=== PATIENT | male | born 1990 | race Two or more races ===

== ENCOUNTER 2018-04-07 03:33 | Emergency (ER) | payer SELFPAY ==
[2018-04-07 03:45] VITALS: BP 133/80; PULSE 91; RESP 16; TEMP 98; O2SAT 98
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
[2018-04-07] MEDS ORDERED: Sodium Chloride 0.9% 1,000 ML IV STA (04:34)
[2018-04-07] MEDS ORDERED: Morphine 4 MG/ML VIAL IVP ONE (04:34)
[2018-04-07] MEDS ORDERED: Morphine 4 MG/ML VIAL ONE (05:25)
[2018-04-07 06:03] LABS: BASO % 0.4 % (0.0-2.0); EOS # 0.2 K/uL (0.0-0.7); EOS % 3.5 % (0.0-4.0); HEMOGLOBIN 14.9 g/dL (12.0-18.0); LYMPH # 1.7 K/uL (1.0-4.3); LYMPH % 29.4 % (20.0-40.0); MEAN CELL VOLUME 88.1 fl (80.0-94.0); MEAN CORPUSCULAR HEMOGLOBIN 28.8 pg (27.0-31.0); MEAN CORPUSCULAR HGB CONC 32.7 g/dL (33.0-37.0); MEAN PLATELET VOLUME 8.4 fl (7.2-11.7); MONO # 0.5 K/uL (0.0-0.8); NEUT # 3.5 K/uL (1.8-7.0); NEUT % 58.7 % (50.0-75.0); NRBC % 0.1 % (0.0-0.0); RBC 5.18 Mil/uL (4.40-5.90); RED CELL DISTRIBUTION WIDTH 13.8 % (11.5-14.5); WHITE BLOOD COUNT 5.9 K/uL (4.8-10.8)
[2018-04-07 06:08] LABS: ALB/GLOB RATIO 1.4 (1.0-2.1); ALBUMIN 4.6 g/dL (3.5-5.0); ALT/SGPT 25 U/L (21-72); AST/SGOT 34 U/L (17-59); BLOOD UREA NITROGEN 16 mg/dl (9-20); CALCIUM 9.1 mg/dL (8.4-10.2); GFR NON-AFRICAN AMERICAN > 60
--- NOTE | 2018-04-07 10:40 | CT ---
Date of service: 04/07/2018 PROCEDURE: CT Lumbar Spine without contrast HISTORY: back injury COMPARISON: None available. TECHNIQUE: Axial computed tomography images were obtained of the lumbar spine without the use of intravenous contrast. Coronal and sagittal reformatted images were created and reviewed. Radiation dose: Total exam DLP = 295.32 mGy-cm. This CT exam was performed using one or more of the following dose reduction techniques: Automated exposure control, adjustment of the mA and/or kV according to patient size, and/or use of iterative reconstruction technique. FINDINGS: VERTEBRAE: No destructive bony lesion appreciable. No fracture. Normal alignment. DISCS/SPINAL CANAL/NEURAL FORAMINA: L1-2: Unremarkable. L2-3: Unremarkable. L3-4: Limited circumferential disc bulge encroaches the bilateral lateral recesses without significant central canal stenosis. No neural foraminal stenosis bilaterally. L4-5: Limited circumferential disc bulge encroaches the bilateral lateral recesses without significant central canal stenosis. No neural foraminal stenosis bilaterally. L5-S1: Prominent disc height loss but no significant central canal or neural foraminal stenosis identified. PARASPINAL SOFT TISSUES: Unremarkable. OTHER FINDINGS: None. IMPRESSION: No gross disc herniation throughout the examination. Disc height loss at L5-S1 indicates degenerative disease with limited disc bulging at L3-4 and L4-5 encroaching the lateral recesses symmetrically, bilaterally but without causing generalized central canal stenosis. Preliminary report provided by [facility], 04/07/2018.
--- NOTE | 2018-04-07 10:46 | CT ---
Date of service: 04/07/2018 PROCEDURE: CT Thoracic Spine without contrast HISTORY: fall COMPARISON: None available. TECHNIQUE: Axial computed tomography images were obtained of the thoracic spine without intravenous contrast. Coronal and sagittal reformatted images were created and reviewed. Radiation dose: Total exam DLP = 450.3 mGy-cm. This CT exam was performed using one or more of the following dose reduction techniques: Automated exposure control, adjustment of the mA and/or kV according to patient size, and/or use of iterative reconstruction technique. FINDINGS: VERTEBRAE: Unremarkable. No fracture. Normal alignment. DISCS/SPINAL CANAL/NEURAL FORAMINA: Within the limits of the CT technique, no disc herniation seen. No central canal or neural foraminal stenosis.. PARASPINAL SOFT TISSUES: Unremarkable. OTHER FINDINGS: Unremarkable. IMPRESSION: Unremarkable CT of the thoracic spine. Preliminary report provided by [facility], 04/07/2018.
--- NOTE | 2018-04-07 10:53 | CT ---
Date of service: 04/07/2018 PROCEDURE: CT HEAD WITHOUT CONTRAST. HISTORY: head injury COMPARISON: None available. TECHNIQUE: Axial computed tomography images were obtained through the head/brain without intravenous contrast. Radiation dose: Total exam DLP = 786.15 mGy-cm. This CT exam was performed using one or more of the following dose reduction techniques: Automated exposure control, adjustment of the mA and/or kV according to patient size, and/or use of iterative reconstruction technique. FINDINGS: HEMORRHAGE: No intracranial hemorrhage. BRAIN: Normal coto-white matter differentiation and density are appreciated throughout the cerebrum and cerebellum with the brainstem appearing unremarkable as well. There is no mass effect. There is no suspicious extra-axial fluid collection and the midline brain anatomy appears diffusely unremarkable. No atrophy or chronic microvascular ischemic changes. VENTRICLES: Unremarkable. No hydrocephalus. CALVARIUM: No destructive bony lesion or displaced fracture identified including through the skullbase. Moderate bilateral paranasal and right supraorbital soft tissue edema identified. PARANASAL SINUSES: Unremarkable as visualized. No significant inflammatory changes. MASTOID AIR CELLS: Unremarkable as visualized. No inflammatory changes. OTHER FINDINGS: None. IMPRESSION: No significant intracranial findings appreciable. Incidental paranasal and right periorbital soft tissue edema. No fracture identified throughout. Follow-up CT available if clinically warranted. Concordant preliminary report from [facility], 04/07/2018.
== END 2018-04-07 07:12 | disposition home or self-care (01) ==
LOC: H.ER 03:33 → EDBD 03:33 → MERGE 03:33 → H.ER 07:12
DX: S23.3XXA Sprain of ligaments of thoracic spine, initial encounter (principal); S39.012A Strain of muscle, fascia and tendon of lower back, initial encounter; S33.5XXA Sprain of ligaments of lumbar spine, initial encounter
CPT/HCPCS: 70450; 72128; 72131; 80053; 82948; 85025; 99283; G0480